=== PATIENT | male | born 1975 | race Caucasian/White ===

== ENCOUNTER 2019-06-22 13:49 | Emergency (ER) | payer BC ==
--- NOTE | 2019-06-22 14:37 | ED Physician Documentation ---
PD HPI FOCAL NEURO - Stated complaint Stated Complaint: DIZZINESS,INCREASED BP - Chief complaint Chief Complaint: Neuro - History obtained from History obtained from: Patient (44-year-old gentleman with recent diagnosis of hypertension. For the last 3 weeks he has had higher blood pressures and he has had vertigo. The vertigo is fleeting and usually is happening when it is upright or Rotating his head. He had a particularly bad episode today. He has been having some mild headaches. He was recently started on losartan and amlodipine for his blood pressure. At that time per his report he had an EKG and labs done in the office which were normal.) Review of Systems Constitutional: denies: Fever, Chills Eyes: denies: Loss of vision, Decreased vision, Photophobia, Discharge, Irritation Ears: reports: Loss of hearing, Tinnitus/ringing. denies: Ear pain, Drainage/discharge, Foreign body Nose: denies: Rhinorrhea / runny nose, Congestion Throat: denies: Sore throat Cardiac: denies: Chest pain / pressure, Palpitations PD PAST MEDICAL HISTORY - Past Medical History Past Medical History: No - Past Surgical History Past Surgical History: No - Present Medications Home Medications: Ambulatory Orders Medication Instructions Recorded Confirmed Losartan [Cozaar] 200 mg PO DAILY 06/22/19 06/22/19 amLODIPine [Norvasc] 5 mg PO DAILY 06/22/19 06/22/19 - Allergies Allergies/Adverse Reactions: Allergies Allergy/AdvReac Type Severity Reaction Status Date / Time No Known Drug Allergies Allergy Verified 06/22/19 13:58 - Social History Does the pt smoke?: No Smoking Status: Never smoker Does the pt drink ETOH?: No Does the pt have substance abuse?: No - Immunizations Immunizations are current?: Yes - POLST Patient has POLST: No PD ED PE NORMAL - Vitals Vital signs reviewed: Yes - General General: Alert and oriented X 3, No acute distress - HEENT HEENT: PERRL, EOMI (With just a touch of nystagmus on far leftward gaze), Other (TMs are initially completely obscured by cerumen which after syringe irrigation were normal.) - Neck Neck: Supple, no meningeal sign, No bony TTP - Cardiac Cardiac: RRR, No murmur - Respiratory Respiratory: No respiratory distress, Clear bilaterally - Abdomen Abdomen: Normal bowel sounds, Soft, Non tender - Back Back: No CVA TTP, No spinal TTP - Derm Derm: Normal color, Warm and dry - Extremities Extremities: No edema, No calf tenderness / cord - Neuro Neuro: Alert and oriented X 3, No motor deficit, No sensory deficit, Normal speech Eye Opening: Spontaneous Motor: Obeys Commands Verbal: Oriented GCS Score: 15 NIHSS - Time Time: 14:25 - Level of Consciousness Level of consciousness: (0) Alert, Keenly responsive LOC Questions: (0) Answers both Q's correct LOC Commands: (0) Performs both correctly - Gaze Best Gaze: (0) Normal - Visual Visual: (0) No loss - Facial Palsy Facial Palsy: (0) Normal, symmetrical movement - Motor Arms (both separate) Motor Arm (right): (0) No drift Motor Arm (left): (0) No drift - Motor Legs (both separate) Motor Leg (right): (0) No drift Motor Leg (left): (0) No drift - Limb Ataxia Limb Ataxia: (0) Absent - Sensory Sensory: (0) Normal - Best Language Best Language: (0) No aphasia - Dysarthria Dysarthria: (0) Normal - Extinction and Inattention (formally neg Extinction and inattention: (0) No abnormality - Total Score/Results Total Score/Result: 0 Results - Vitals Vitals: Vital Signs - 24 hr 06/22/19 06/22/19 13:55 13:57 Temperature 36.5 C 36.6 C Heart Rate 81 81 Respiratory 18 18 Rate Blood Pressure 157/111 H 157/111 H O2 Saturation 99 99 Oxygen O2 Source Room air - Rads (name of study) CT head, CTA of head Radiology: EMP read contemporaneously (Normal no vascular issues) Procedures - General procedure General procedure: Both ears were disimpacted of cerumen using syringe irrigation with success. The patient tolerated well. PD MEDICAL DECISION MAKING - ED course ED course: 44-year-old gentleman presents with what seems like peripheral vertigo. He did have some improvement after disimpaction of all the cerumen in his ears but not complete. It is almost subacute, was very worried about the exertional component and had a specific worry about aneurysms and this was explored with CT angiography and negative. Departure - Departure Disposition: 01 Home, Self Care Clinical Impression: Vertigo Headache Qualifiers: Headache type: unspecified Headache chronicity pattern: acute headache Intractability: not intractable Qualified Code(s): R51 - Headache Hypertension Qualifiers: Hypertension type: essential hypertension Qualified Code(s): I10 - Essential (primary) hypertension Instructions: ED Vertigo Unspecified Comments: The vertigo seems like what is called a peripheral phenomenon. Return for new or worsening symptoms and you can trial the Angela maneuver as discussed. If you are still having issues, I would recommend follow-up with an ear nose and throat physician, the closest is in [place], the phone number is [phone].
--- NOTE | 2019-06-22 15:26 | CT Report ---
Reason: vertigo Procedure Date: 06/22/2019 Accession Number: [id number] / [id number] Procedure: CT - HEAD WO CPT Code: Final Report FULL RESULT: EXAM: CT HEAD EXAM DATE: 06/22/2019 02:52 PM. CLINICAL HISTORY: Vertigo. COMPARISON: None. TECHNIQUE: Multiaxial CT images were obtained from the foramen magnum to the vertex. Reformats: Sagittal and coronal. IV contrast: None. In accordance with CT protocol optimization, one or more of the following dose reduction techniques were utilized for this exam: automated exposure control, adjustment of mA and/or KV based on patient size, or use of iterative reconstructive technique. FINDINGS: Parenchyma: No intraparenchymal hemorrhage. Subtle hyperdensity within the high right frontal region (image 23 series 3) is more likely imaging artifact or variant anatomy than pathology. No evidence of mass, midline shift, or CT findings of infarction. Lopez-white differentiation is distinct. Extraaxial Spaces: Normal for age. No subdural or epidural collections identified. Ventricles: Normal in size and position. Sinuses and Orbits: Imaged paranasal sinuses, orbits, and mastoids show no significant abnormality. Bones: No evidence of fracture or calvarial defect. Other: None. IMPRESSION: No acute intracranial CT abnormality. RADIA
[2019-06-22] MEDS ORDERED: IOVERSOL 320 100 ML VIAL IVP ONE ×2 (15:50→16:08)
--- NOTE | 2019-06-22 16:35 | CT Report ---
Reason: headaches/vertigo Procedure Date: 06/22/2019 Accession Number: [id number] / [id number] Procedure: CT - ANGIO HEAD W/WO CPT Code: Final Report FULL RESULT: EXAM: CT ANGIOGRAM HEAD. CT SCAN OF THE HEAD WITHOUT AND WITH CONTRAST. EXAM DATE: 06/22/2019 04:07 PM CLINICAL HISTORY: 44-year-old presenting with 2-week history of worsening headaches and vertigo. Evaluate for intracranial pathology. COMPARISON: CT head without contrast 06/22/2019 at 1450 hours. TECHNIQUE: - CT Scan Head: Using a multidetector scanner, axial images were acquired from the foramen magnum to the skull vertex prior to and following contrast administration. - CT Angiogram: Using a multidetector scanner, high-resolution axial images were acquired from the skull base through vertex following rapid infusion of intravenous contrast. Reformats: Multiplanar MIP reformats were reconstructed. NASCET criteria used for stenosis measurement. IV Contrast: 80 mL optiray 320. In accordance with CT protocol optimization, one or more of the following dose reduction techniques were utilized for this exam: automated exposure control, adjustment of mA and/or KV based on patient size, or use of iterative reconstructive technique. FINDINGS: NON-CONTRAST HEAD: Parenchyma: No intraparenchymal hemorrhage. No evidence of mass, midline shift, or CT findings of infarction. Lopez-white differentiation is distinct. Extraaxial Spaces: Normal for age. No subdural or epidural collections identified. Ventricles: Normal in size and position. Sinuses and orbits: Imaged paranasal sinuses, orbits, and mastoids show no significant abnormality. Bones: No evidence of fracture or calvarial defect. Other: None. POST-CONTRAST HEAD: No abnormal enhancement. CT ANGIOGRAM HEAD: RIGHT: Internal Carotid artery: No evidence of dissection. No evidence of aneurysm along the intracranial ICA. Anterior Cerebral Artery: Hypoplastic A1 segment with normal-appearing A2 segment. Distal A-shaped branches are patent. No aneurysm. Middle Cerebral Artery: Patent without significant stenosis, aneurysm, or vascular malformation. Posterior Cerebral Artery: -like [employer]. No aneurysm. Posterior Communicating Artery: Patent. No aneurysm. 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 No definite dissection. No high-grade stenosis. No aneurysm. LEFT: Internal Carotid artery: No evidence of dissection. No evidence of aneurysm along the intracranial ICA. Anterior Cerebral Artery: Patent without significant stenosis, aneurysm, or vascular malformation. Middle Cerebral Artery: Patent without significant stenosis, aneurysm, or vascular malformation. Posterior Cerebral Artery: Patent without significant stenosis, aneurysm, or vascular malformation. Posterior Communicating Artery: Patent. No aneurysm. Vertebral Artery: Patent without significant stenosis. No evidence of dissection. CENTRAL: Anterior Communicating Artery: Patent. No aneurysm. Basilar Artery: Patent without significant stenosis. No aneurysm. DURAL VENOUS SINUSES AND MAJOR CENTRAL VEINS: Patent. IMPRESSION: CT Head: 1. No definite acute infarct seen. If there is clinical concern for acute stroke or if symptoms persist, an MR brain could be considered to evaluate for small or subtle pathology. 2. No acute intracranial hemorrhage, mass, hydrocephalus, or midline shift. No abnormal postcontrast enhancement. CTA Head: 1. No large vessel occlusion. 2. No significant vascular stenosis, definite dissection, or aneurysm. RADIA
[2019-06-22 17:13] VITALS: BP 160/110
== END 2019-06-22 17:12 | disposition home or self-care (01) ==
LOC: ED 13:49
DX: R42 Dizziness and giddiness (principal); R51 Headache; I10 Essential (primary) hypertension; H61.23 Impacted cerumen, bilateral
CPT/HCPCS: 69209; 70496; 99284; Q9967; 70450

== ENCOUNTER 2019-07-02 07:56 | Outpatient (CLI) | payer BC ==
--- NOTE | 2019-07-02 09:36 | CARDIAC PROCEDURE NOTE ---
DATE OF SERVICE: 07/02/2019 Physician: Susy Lozada MD, [facility] INDICATION: Exertional vertigo, uncontrolled hypertension. CARDIAC RISK FACTORS: Male gender, hypertension. DESCRIPTION OF PROCEDURE: After signing informed consent, patient underwent a Raudel-protocol treadmill stress test. No imaging study was ordered with this test. RESTING HEART RATE: 84. PEAK HEART RATE: 150 (84% predicted maximum heart rate for age). RESTING BLOOD PRESSURE: 161/109. PEAK BLOOD PRESSURE: 227/88. Patient exercised for 8 minutes and 14 seconds on a Raudel-protocol treadmill stress test. Patient developed no chest pain, had mild to moderate shortness of breath at peak. Oxygen saturation was 96-99% on room air throughout the test. The treadmill was stopped when he developed his typical symptoms of vertigo. There was no drop in blood pressure at this time and no murmur at the time of the vertigo symptoms (to suggest IHSS). With vertigo, he had horizontal nystagmus, which lasted for about 3 minutes into recovery. He then had nausea, which lasted about 10 minutes into recovery, no vomiting. RESTING EKG: Normal sinus rhythm, left IVCD, early repolarization, biphasic/inverted T waves in leads II, III, aVF, and V4 through V6. EKG AT PEAK: New biphasic/inverted T-wave in V3, loss of early repolarization (J-point drops to baseline), no ST segment changes. SUMMARY 1. Abnormal resting EKG. 2. Non-specific EKG changes developed at peak stress, not specific for ischemia. 3. Good exercise tolerance. 4. Uncontrolled blood pressure at rest (despite taking his BP meds), and excessive blood pressure at peak exercise. 5. At peak exertion, patient did develop his typical vertigo symptoms. This was associated with horizontal nystagmus that lasted for 3 minutes, followed by nausea. 6. Patient's cardiac risk based on all the above: Low-Moderate. 7. Recommend Neurology evaluation, brain MRI, if not yet done. TD: 07/02/2019 09:29 RADHA
== END 2019-07-02 07:57 | disposition home or self-care (01) ==
LOC: DI 07:56
PROVIDERS: ATTEND Physician Assistant Medical
DX: I10 Essential (primary) hypertension (principal); R42 Dizziness and giddiness; R94.31 Abnormal electrocardiogram [ECG] [EKG]
CPT/HCPCS: 93017